=== PATIENT | male | born 1945 ===

== ENCOUNTER 2017-10-02 15:32 | Emergency (ER) | payer MEDICARE ==
[2017-10-02] MEDS ORDERED: Amoxicillin-Clav 875-125 mg Tab PO STA (16:20)
--- NOTE | 2017-10-02 16:23 | C.PDOC ---
History Of Present Illness 72 yo male w/o significant PMHx come in for evaluation of Left earache gradually developed for past 2 days " after was swimming in pool". Pt reports, pain worsen since last night, describes as localized over left ear, non- radiating, throbbing. Otherwise, pt denies fever, chills, headache, dizziness, vertigo, tinnitus, ear discharges, drooling, sore throat, neck pain, cough, CP, SOB, abd. pain, N/V/D, back pain, UTI sx, denies any other active complaints. Ambulate to Ed for evaluation, not in any apparent distress. Time Seen by Provider: 10/02/17 15:43 Chief Complaint (Nursing): ENT Problem History Per: Patient Past Medical History Reviewed: Historical Data, Nursing Documentation, Vital Signs Vital Signs: Last Vital Signs Temp 99.4 F 10/02/17 15:35 Pulse 86 10/02/17 15:35 Resp 18 10/02/17 15:35 BP 176/83 H 10/02/17 15:35 Pulse Ox 98 10/02/17 16:22 - Medical History PMH: HTN Family History: States: No Known Family Hx - Social History Hx Alcohol Use: No Hx Substance Use: No - Immunization History Hx Tetanus Toxoid Vaccination: Yes Hx Influenza Vaccination: No Hx Pneumococcal Vaccination: No Review Of Systems Except As Marked, All Systems Reviewed And Found Negative. Constitutional: Negative for: Fever, Chills Eyes: Negative for: Vision Change ENT: Positive for: Ear Pain. Negative for: Ear Discharge, Nose Discharge, Nose Congestion, Throat Pain, Throat Swelling Cardiovascular: Negative for: Chest Pain, Palpitations Respiratory: Negative for: Cough, Shortness of Breath, Wheezing Gastrointestinal: Negative for: Nausea, Vomiting, Abdominal Pain, Diarrhea Genitourinary: Negative for: Dysuria, Incontinence Musculoskeletal: Negative for: Neck Pain Skin: Negative for: Rash Neurological: Negative for: Altered Mental Status, Headache, Dizziness Physical Exam - Physical Exam Appears: Well, Non-toxic, No Acute Distress Skin: Normal Color, Warm, Dry, No Rash Head: Normacephalic Eye(s): bilateral: PERRL Ear(s): Left: TM Erythema, Other (no mastoid tenderness), Right: Normal Nose: No Flaring, No Discharge Oral Mucosa: Moist, No Drooling Tongue: Normal Appearing Lips: Normal Appearing Throat: No Erythema, No Drooling Neck: Trachea Midline, Supple Lymphatic: Adenopathy (no cervical) Respiratory: No Decreased Breath Sounds, No Accessory Muscle Use, No Stridor, No Wheezing Back: No CVA Tenderness Extremity: Normal ROM, No Deformity, No Swelling Neurological/Psych: Oriented x3, Normal Speech ED Course And Treatment O2 Sat by Pulse Oximetry: 98 Pulse Ox Interpretation: Normal Progress Note: On re-evlauation, pt is afebrile, hemodynamicaly stable. Tolerate Po well in Ed. PulseOx 98% RA. Neck: Supple,(-)meningeal sign. ENT: (+) exam c/w Left otitis media, no ear canal edema or erythema, no discharges. No mastoid discharge. Lungs: CTA B/L, BS equal B/L. back: (-) CVA tenderness. Parent advised and ref. to f/u with PMD, ENT in 2-3 days for re-eavl. return if any new changes. Disposition Counseled Patient/Family Regarding: Diagnosis, Need For Followup, Rx Given - Disposition Referrals: [facility] at [facility] [Outside] Marcelo Wilde MD [Staff Provider] - Disposition: HOME/ ROUTINE Disposition Time: 16:22 Condition: STABLE Additional Instructions: keep ear dry, avoid water contact Take medication as prescribed Follow up with PMD, ENT In 2-3 days for re-evaluation. return to ED if any worsening or new changes. Prescriptions: Amoxicillin/Clavulanate [Augmentin 875 MG-125 MG] 1 tab PO BID #14 tab Prednisone [Deltasone] 40 mg PO DAILY #6 tablet traMADol [Ultram] 50 mg PO TID #7 tab Instructions: Ear Infections (Otitis Media) Forms: [employer] [place] ([place]an) Print Language: SERBIAN - Clinical Impression Clinical Impression: Otitis media
[2017-10-02] MEDS ORDERED: Amoxicillin-Clav 875-125 mg Tab PO ONE (16:45)
[2017-10-02 16:55] VITALS: BP 166/80; PULSE 79; RESP 20; TEMP 98.4; O2SAT 97
== END 2017-10-02 16:59 | disposition home or self-care (01) ==
LOC: C.ER 15:32
DX: H66.92 Otitis media, unspecified, left ear (principal)